=== PATIENT | female | born 1985 | race Caucasian/White ===

== ENCOUNTER 2020-06-19 21:26 | Emergency (ER) | payer MEDICARE, OTHER ==
[2020-06-19] MEDS ORDERED: KETOROLAC 60 MG/2 ML VIAL IM STA (21:35)
--- NOTE | 2020-06-19 21:35 | ED Integumentary General ---
General Chief Complaint: Skin/Wound Problems Stated Complaint: CAT BITE, LT HAND PAIN Source: patient Exam Limitations: no limitations History of Present Illness Date Seen by Provider: Jun 19, 2020 Time Seen by Provider: 21:34 Initial Comments 34-year-old female presents with left hand pain. Patient was bit by a cat yesterday. Patient was seen yesterday in urgent care and started on Augmentin last night. She comes in today because her hand still hurts swollen and painful. Reports she started her Augmentin. She used Tylenol couple hours ago. No nausea vomiting fevers chills. Allergies and Home Medications Allergies Coded Allergies: No Known Drug Allergies (Unverified , 06/19/20) Patient Home Medication List Home Medication List Reviewed: Yes Review of Systems Review of Systems Constitutional: No chills; fever EENTM: no symptoms reported Respiratory: no symptoms reported Cardiovascular: no symptoms reported Gastrointestinal: no symptoms reported Genitourinary: no symptoms reported Musculoskeletal: see HPI Skin: see HPI Past Kmciytm-[id number]-Cgnlnn Hx Past Med/Social Hx: Reviewed Nursing Past Med/Soc Hx Physical Exam Vital Signs Vital Signs - First Documented 06/19/20 21:30 Temp 37.1 Pulse 88 Resp 18 B/P (MAP) 153/82 (105) Pulse Ox 94 O2 Delivery Room Air Capillary Refill : General Appearance: other (Discomfort) Cardiovascular: normal peripheral pulses, regular rate, rhythm Respiratory: lungs clear, normal breath sounds Extremities: swelling (Left hand) Neurologic/Psychiatric: alert, normal mood/affect, oriented x 3 Skin: other (Mild erythema and warmth) Skin Problem Location: other (Left hand) Skin Problem Character: erythema, warm Progress/Results/Core Measures Results/Orders My Orders Orders - JUSTIN PRUITT DO Ceftriaxone For Im Use (Rocephin For Im (06/19/20 21:45) Lidocaine 1% Inj 20 Ml (Xylocaine 1% Inj (06/19/20 21:45) Ketorolac Injection (Toradol Injection) (06/19/20 21:35) Vital Signs/I&O 06/19/20 21:30 Temp 37.1 Pulse 88 Resp 18 B/P (MAP) 153/82 (105) Pulse Ox 94 O2 Delivery Room Air Progress Progress Note : Progress Note Patient with swelling and some mild erythema to her left hand with 2 puncture wounds from the cat bite. Patient is currently on Augmentin which is proper antibiotic. We will give her a shot of Rocephin and Toradol. Patient stable an d should follow-up with her primary care provider in a couple days for recheck of symptoms or sooner if they continue to worsen Departure Impression Primary Impression: Infected cat bite of hand Qualified Codes: S61.452A - Open bite of left hand, initial encounter; L08.9 - Local infection of the skin and subcutaneous tissue, unspecified; W55.01XA - Bitten by cat, initial encounter Disposition: HOME, SELF-CARE Condition: Stable Departure-Patient Inst. Referrals: HEATHER DASH DO (PCP/Family) Primary Care Physician Patient Instructions: Wound Care ED, Animal Bites ED Add. Discharge Instructions: Continue your antibiotic as prescribed Ice to affected area Follow-up with your primary care provider in 2 to 3 days for recheck of symptoms All discharge instructions reviewed with patient and/or family. Voiced understanding. JUSTIN PRUITT DO Jun 19, 2020 21:35
[2020-06-19] MEDS ORDERED: LIDOCAINE 1% INJ 20 ML 20 ML VIAL INJ ONE (21:45)
[2020-06-19] MEDS ORDERED: cefTRIAXone 1,000 MG/2.86 ml vial (IM ONLY) IM ONE (21:45)
[2020-06-19 21:46] VITALS: BP 153/82
== END 2020-06-19 21:46 | disposition home or self-care (01) ==
LOC: ER FS 21:28
DX: S61.452A Open bite of left hand, initial encounter (principal); L08.9 Local infection of the skin and subcutaneous tissue, unspecified; I10 Essential (primary) hypertension; W55.01XA Bitten by cat, initial encounter
CPT/HCPCS: 99284